=== PATIENT | female | born 2000 | race African-American/Black ===

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

== ENCOUNTER 2021-06-19 21:21 | Emergency (ER) | payer OTHER | END 2021-06-20 00:45 | disposition home or self-care (01) | LOC: CSHERS 21:21 | DX: R10.84 Generalized abdominal pain (principal); J45.909 Unspecified asthma, uncomplicated; E11.9 Type 2 diabetes mellitus without complications | CPT/HCPCS: 99283 ==

== ENCOUNTER 2021-12-03 18:59 | Emergency (ER) | payer OTHER ==
[2021-12-03] MEDS ORDERED: Ketorolac Tromethamine 30 MG/ML VIAL ONE (19:59)
[2021-12-03 20:14] LABS: Bilirubin Neg (Negative); Blood, Urine Negative (Negative); Glucose, Urine (Dipstick) Normal (Negative); Ketone, Urine Negative (Negative); Leukocyte Negative (Negative); Nitrite Negative (Negative); Protein, Urine (Dipstick) 15 mg/dl (Neg-Trace); Specific Gravity, Urine 1.015 (1.002-1.036); Urobilinogen Normal mg/dL (Less than 2); pH, Urine 6.5 (5.0-9.0)
[2021-12-03 20:17] LABS: Clarity Clear (Clear)
[2021-12-03 20:18] LABS: Pregnancy Test - Urine (BHCG) Negative (Negative); Pregu Control Background? CLEAR/WHITE (CLR/WHITE); Pregu Control Bar Appear? YES (CONTROL BAR); Specific Gravity 1.015 (1.002-1.036)
[2021-12-03 20:27] LABS: BHCG - Serum Negative (NEGATIVE); Pregs Control Background? CLEAR/WHITE (CLR/WHITE); Pregs Control Bar Appear? YES (CONTROL BAR)
== END 2021-12-03 21:01 | disposition home or self-care (01) ==
LOC: CSHERS 18:59
DX: R10.12 Left upper quadrant pain (principal)
CPT/HCPCS: 36415; 81003; 81025; 84703; 99284; J1885

== ENCOUNTER 2022-06-19 22:52 | Emergency (ER) | payer MEDICAID, OTHER ==
[2022-06-20] MEDS ORDERED: Fentanyl 100 MCG/2 ML VIAL ONE ×2 (01:11→01:15)
== END 2022-06-20 02:37 | disposition home or self-care (01) ==
LOC: CSHERS 22:52
DX: L02.416 Cutaneous abscess of left lower limb (principal)
CPT/HCPCS: 99282; J3010

== ENCOUNTER 2022-09-16 11:25 | Emergency (ER) | payer OTHER | END 2022-09-16 14:00 | disposition home or self-care (01) | LOC: CSHERS 11:25 | DX: T81.31XA Disruption of external operation (surgical) wound, not elsewhere classified, initial encounter (principal); T81.49XA Infection following a procedure, other surgical site, initial encounter | CPT/HCPCS: 99283 ==